=== PATIENT | female | born 1985 | race Hispanic/Latino ===

== ENCOUNTER 2021-02-12 12:03 | Emergency (ER) | payer SELFPAY ==
--- NOTE | 2021-02-12 12:59 | Emergency Department Report ---
ED General Adult HPI - General Chief complaint: Extremity Injury, Upper Stated complaint: BOTH HANDS NUMB AND SWOLLEN X1 WK Time Seen by Provider: 02/12/21 12:39 Source: patient Mode of arrival: Ambulatory Limitations: No Limitations - History of Present Illness Initial comments: 36-year-old female presents to the emergency room complaining of bilateral hands at her painful and numb and swollen. 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 Patient states this started about 2 weeks ago after 2 days of working in the freezer. Patient states that she lifts heavy objects daily. States that the hand is throbbing and it worse at night. She states that she is takes Aleve but has not helped much. She denies any direct injury. Onset/Timin -: week(s) Location: upper extremity Severity scale (0 -10): 8 Quality: burning, aching Consistency: constant Improves with: none Worsens with: other (Being in the cold) Associated Symptoms: denies: confusion, chest pain, cough, loss of appetite, shortness of breath Treatments Prior to Arrival: none - Related Data Allergies Allergy/AdvReac Type Severity Reaction Status Date / Time No Known Allergies Allergy Unverified 02/12/21 12:07 ED Review of Systems ROS: Stated complaint: BOTH HANDS NUMB AND SWOLLEN X1 WK Other details as noted in HPI Comment: All other systems reviewed and negative ED Past Medical Hx - Past Medical History Previous Medical History?: Yes Hx Psychiatric Treatment: Yes (Drug Rehab) - Surgical History Past Surgical History?: Yes Hx Cholecystectomy: Yes Additional Surgical History: Left knee ED Physical Exam - General Limitations: No Limitations General appearance: alert, in no apparent distress - Head Head exam: Present: atraumatic, normocephalic - Eye Eye exam: Present: normal appearance - ENT ENT exam: Present: mucous membranes moist - Neck Neck exam: Present: normal inspection - Respiratory Respiratory exam: Present: normal lung sounds bilaterally. Absent: respiratory distress - Cardiovascular Cardiovascular Exam: Present: regular rate, normal rhythm. Absent: systolic murmur, diastolic murmur, rubs, gallop - GI/Abdominal GI/Abdominal exam: Present: soft, normal bowel sounds - Extremities Exam Extremities exam: Present: normal inspection, other (Bilateral hands mildly erythematous on the palms mild tenderness capillary refill less than 2 seconds no bruising appreciated no deformities) - Back Exam Back exam: Present: normal inspection - Neurological Exam Neurological exam: Present: alert, oriented X3, normal gait - Psychiatric Psychiatric exam: Present: normal affect, normal mood - Skin Skin exam: Present: warm, dry, intact, normal color. Absent: rash ED Course Vital Signs 02/12/21 12:11 Temperature 98.6 F Pulse Rate 86 Respiratory 20 Rate Blood Pressure 115/76 O2 Sat by Pulse 97 Oximetry ED Medical Decision Making - Medical Decision Making 36-year-old female presents to the emergency room complaining of bilateral hands at her painful and numb and swollen. 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 Patient states this started about 2 weeks ago after 2 days of working in the freezer. Patient states that she lifts heavy objects daily. States that the hand is throbbing and it worse at night. She states that she is takes Aleve but has not helped much. She denies any direct injury. Discussed with patient the pain and the burning and swelling that she has in her hands or do finger environment of working in the freezer. Discussed with patient that the best improvement is to remove her cell from that environment. Also discussed with patient to elevate her hands. Ibuprofen and Tylenol as needed. Follow-up with her primary care provider Critical care attestation.: If time is entered above; I have spent that time in minutes in the direct care of this critically ill patient, excluding procedure time. ED Disposition Clinical Impression: Bilateral hand pain Disposition: 01 HOME / SELF CARE / HOMELESS Is pt being admited?: No Does the pt Need Aspirin: No Condition: Stable Instructions: Hand Pain Additional Instructions: Recommend to remove yourself from that environment as it exacerbates your pain in your hands. This is most likely to repetitive exposure to the cold. Recommend to elevate Tylenol ibuprofen as needed follow-up with a primary care provider Referrals: [facility] [Provider Group] - 3-5 Days [facility] [Outside] - 3-5 Days Forms: Work/School Release Form(ED) Time of Disposition: 13:03
[2021-02-12 13:34] VITALS: BP 114/73
== END 2021-02-12 13:32 | disposition home or self-care (01) ==
LOC: ED 12:03
DX: M79.641 Pain in right hand (principal); M79.642 Pain in left hand; Z90.49 Acquired absence of other specified parts of digestive tract; Z98.890 Other specified postprocedural states
CPT/HCPCS: 99281